=== PATIENT | male | born 1965 | race Caucasian/White ===

== ENCOUNTER 2016-03-22 10:01 | Outpatient (RCR) | payer OTHER ==
--- OUTSIDE RECORDS SUMMARY | 2016-03-22 10:04 | XMS REPORT | Continuity of Care Document ---
Author Author [facility] Organization [facility] Address Unknown Phone Unavailable Care Team Providers [employer] Worker Name Role Phone Leda Hou PCP [phone] Source Comments Some departments are not documenting in the electronic medical record. If you do not see the information that you expected, contact Release of Information in the Health Information Management department at [phone] for further assistance in locating additional records.[facility] Active Allergies and Adverse Reactions Allergen Noted Date Severity Reactions Comments Aspirin 08/20/2015 Low UNKNOWN Mint 10/29/2015 Medium SHORTNESS OF BREATH Pcn 08/20/2015 High HIVES Family states any "cillin" he is allergic to Current Medications Prescription Sig. Disp. Refills Start End Date Status Date folic acid (FOLVITE) 1 mg Take 1 Tab by mouth 30 Tab 1 09/15/19 Active tablet daily. 16 risperiDONE (RISPERDAL) 1 Take 1 Tab by mouth at 30 Tab 1 09/15/19 Active mg tablet bedtime daily. 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 Hydrocephalus, adult 08/21/2015 On mechanically assisted ventilation (HCC) 08/21/2015 Brain compression (HCC) 08/21/2015 Cerebral edema (HCC) 08/21/2015 Alcohol abuse 08/21/2015 Anemia 08/21/2015 Leukocytosis 08/21/2015 Immunizations Name Dates Previously Given Next Due Pneumococcal Vaccine 09/04/2015 (23-[facility]ith Adult) Social History Tobacco Use Types Packs/Day Years Used Date Current Every Day Smoker Cigarettes 3 Smokeless Tobacco: Never Used Tobacco Cessation: Ready to Quit: Yes; Counseling Given: Yes Comments: Alcohol Use Drinks/Week oz/Week Comments Yes 0 Standard 0.0 drinks or equivalent Last Filed Vital Signs Vital Sign Reading Time Taken Blood Pressure 140/88 12/15/2015 4:31 PM CDT Pulse 55 12/15/2015 4:31 PM CDT Temperature 36.9 C (98.4 F) 12/15/2015 11:13 AM CDT Respiratory Rate 18 10/29/2015 10:14 AM CDT Height 1.803 m (5' 11") 10/29/2015 10:14 AM CDT Weight 86.637 kg (191 lb) 10/29/2015 10:14 AM CDT Body Mass Index 26.65 10/29/2015 10:14 AM CDT Oxygen Saturation 100% 12/15/2015 4:31 PM CDT Plan of Care Date Type Specialty Providers Description 04/27/2016 Appointment Rehabilitation Medicine H[place] Hill MD [address] [facility] [address] [place] [address] [phone] (Fax) Health Maintenance Due Date Last Done Comments Hepatitis C Screening 1964 Physical (Comprehensive) 1971 Exam Pertussis Vaccine 1975 Tetanus Vaccine 1981 Colorectal Cancer 2014 Screening Influenza Vaccine 10/29/2015 Results from Last 3 Months Not on file
== END 2016-03-22 11:33 | disposition home or self-care (01) ==
PROVIDERS: ATTEND Neuromusculoskeletal Medicine, Sports Medicine
DX: Z02.71 Encounter for disability determination (principal)